=== PATIENT | male | born 1995 | race Caucasian/White ===

== ENCOUNTER 2016-10-01 12:11 | Emergency (ER) | payer BC ==
[~2016-10-01] VITALS: Ht 193 cm; Wt 120.0 kg
[~2016-10-01 12:11] MED LIST: NEXI20CA PO; NORC7.5T PO; PROM25TA5 PO; ZOFR4TAB3 SL
[2016-10-01 12:13] VITALS: BP 140/73; PULSE 98; RESP 14; TEMP 98.1; O2SAT 99
[2016-10-01] MEDS ORDERED: RESP: ALBUTEROL 2.5 MG/3 ML NEB (SCH) INH ONE (12:45)
[2016-10-01] MEDS ORDERED: IBUPROFEN 800 MG TAB PO ONE (12:45)
--- NOTE | 2016-10-01 12:56 | PD ---
HPI Chief Complaint: Cold / Flu Symptoms Time Seen by Provider: 12:39 Travel History International Travel<30 days: No Contact w/Intl Traveler<30days: No Traveled to known affect area: No History of Present Illness HPI 21-year-old male presents to the emergency Department with complaint of nasal congestion, sinus pressure, ear pressure, sore throat, cough, chest congestion, chest tightness, shortness of breath, and body aches that onset on Friday. Reports subjective fever with chills. Said his symptoms started out as a sore throat and moved into his chest and then worsened today with onset of all other symptoms. He does have history of asthma. He denies wheezing. He has not used his inhaler to try to alleviate symptoms. Denies abdominal pain, nausea, vomiting. Has tried ibuprofen and Robitussin with some relief of symptoms. He also started an old prescription of a Z-Matthew 2 days ago with no improvement in symptoms. Has not received flu vaccine. No one else sick with similar symptoms. Allergies to penicillin. History of asthma. No other modifying factors or associated signs and symptoms. PFSH Past Medical History Asthma: No Autoimmune Disease: No Blood Disorders: No Anxiety: Yes Heart Rhythm Problems: No Cardiovascular Problems: No Chest Pain: No Cystic Fibrosis: No Diminished Hearing: No GERD: Yes (Gastritis) Headaches: No Hypertension: No Musculoskeletal: No Neurologic: No Psychiatric: Yes Respiratory: No Immunizations Current: Yes Seizures: No Sickle Cell Disease: No Sleep Apnea: No Past Surgical History Other Surgery: No Social History Alcohol Use: No Tobacco Use: No (Quit about 1 year ago) Substance Use: No Allergies-Medications (Allergen,Severity, Reaction): Coded Allergies: Penicillin (Verified Allergy, Mild, hives, 02/28/15) Reported Meds & Prescriptions Reported Meds & Active Scripts Active Nasonex Nasal [place] (Mometasone Furoate) 50 Mcg/Act Naspr 2 [place] EACH NARE DAILY PRN Tessalon Perles (Benzonatate) 100 Mg Cap 100 Mg PO TID PRN Deltasone (Prednisone) 20 Mg Tab 40 Mg PO DAILY 5 Days Proair Hfa 8.5 GM Inh (Albuterol Sulfate) 90 Mcg/Act Aer 2 Puff INH Q4-6H PRN 108 mcg/actuation Zofran ODT (Ondansetron HCl) 4 Mg Tab 4-8 Mg SL Q6HR PRN FOR NAUSEA/VOMITING [place] 7.5-325 mg (Hydrocodone-Acetaminophen 7.5-325 mg) 7.5 Mg/325 Mg Tab 1 Tab PO Q4HR PRN Reported Nexium (Esomeprazole Magnesium) Esomeprazole Magnesium 20 mg Cap 20 Mg PO DAILY Phenergan 25 mg (Promethazine HCl) 25 Mg Tab 12.5 Mg PO Review of Systems Except as stated in HPI: all other systems reviewed are Neg Physical Exam Narrative GENERAL: Well-nourished, well-developed patient, in no acute distress; afebrile , nontoxic-appearing SKIN: Warm and dry. No rash. HEAD: Atraumatic. Normocephalic. EYES: Pupils equal and round at 3 mm with brisk reaction. No scleral icterus. No injection or drainage. PERRLA. ENT: Mucosa pink and moist. Oropharynx with erythema; without edema or exudates. No uvular edema. No uvular, palatal, or tonsillar deviation. Airway patent. EARS: Bilateral pinnae and external canals appear within normal limits. Bilateral tympanic membranes without erythema, dullness or perforation. NECK: Trachea midline. No lymphadenopathy. CARDIOVASCULAR: Regular rate and rhythm. No murmur appreciated. RESPIRATORY: No accessory muscle use. Clear to auscultation. Breath sounds equal bilaterally. GASTROINTESTINAL: Abdomen soft, non-tender, nondistended. Hepatic and splenic margins not palpable. Bowel sounds are active 4 quadrants. MUSCULOSKELETAL: No obvious deformities. No clubbing. No cyanosis. No edema. NEUROLOGICAL: Awake and alert. Oriented 3. No obvious cranial nerve deficits. Motor grossly within normal limits. Normal speech. Moves all extremities. 5/5 strength to all extremities. PSYCHIATRIC: Appropriate mood and affect; insight and judgment normal. Data Data Last Documented VS Vital Signs Date Time Temp Pulse Resp B/P Pulse Ox O2 Delivery O2 Flow Rate FiO2 10/01/16 13:57 17 10/01/16 12:13 98.1 98 140/73 99 Orders Influenzae A/B Antigen (10/01/16 12:30) Group A Rapid Strep Screen (10/01/16 12:30) Ibuprofen (Motrin) (10/01/16 12:45) Chest, Single Ap (10/01/16 12:38) Albuterol Neb (Albuterol Neb) (10/01/16 12:45) Strep Culture (Group A) (10/01/16 12:30) [facility] Medical Decision Making Medical Screen Exam Complete: Yes Emergency Medical Condition: Yes Medical Record Reviewed: Yes Differential Diagnosis Influenza, bronchitis, pneumonia, viral illness, sinusitis Narrative Course 21-year-old male with cold/flu symptoms. Patient has history of asthma and is complaining of chest tightness and shortness of breath. His lungs are clear and equal throughout. The patient is in no acute distress without retractions or tachypnea. His main complaint is cough and sore throat. Albuterol nebulizer , chest x-ray, influenza, rapid strep ordered. 1334: Influenza and rapid strep negative. Patient reports improvement in symptoms after breathing treatment. He denies chest tightness or shortness of breath. Feels like he can cough up more mucus and it has loosened up. Lungs are clear and equal throughout. 1433: Chest x-ray with no acute findings. Pro-air inhaler, Deltasone, Tessalon Perles, Nasonex nasal spray prescribed for home. Patient verbalizes understanding and agreement with treatment plan. Patient is medically cleared and stable for discharge. Discussed reasons to return to the emergency department. Instructed patient to follow up with primary care provider. Patient agrees with treatment plan. The patients vital signs are stable and the patient is stable for outpatient follow-up and treatment. Patient discharged home, stable and in no acute distress. Diagnosis Primary Impression: Acute bronchitis Qualified Code: J20.9 - Acute bronchitis, unspecified organism Referrals: Primary Care Physician Patient Instructions: General Instructions Departure Forms: Tests/Procedures, Work Release Enter return to work date: Oct 03, 2016 Additional Instructions: Use Albuterol inhaler as prescribed Take oral steroids as prescribed and complete full course Use Tessalon Perles as prescribed to decrease coughing spasms [id number] decongestants or antihistamines as directed and as needed for symptom management Your cough can last 4-6 weeks Drink plenty of fluids to prevent dehydration Use hot air humidifier to decrease cough exacerbation Turn off ceiling fans and sleep with head of bed elevated Avoid triggers such as second hand smoke, dust, known allergens Follow-up with your primary care provider Return to the emergency department immediately with worsening of symptoms Med/Other Pt SpecificInfo: Prescription(s) given Scripts Mometasone Nasal [place] (Nasonex Nasal [place])50 Mcg/Act Naspr2 [place] EACH NARE DAILY PRN (NASAL CONGESTION) #1 BOTTLE Ref 0 Prov:Jyotsna NielsenP 10/01/16 Benzonatate (Tessalon Perles)100 Mg [id number] Mg PO TID PRN (COUGH) #20 CAP Ref 0 Prov:Jyotsna NielsenP 10/01/16 Prednisone (Deltasone)20 Mg Tab40 Mg PO DAILY 5 Days Ref 0 Prov:Jyotsna Nielsen [employer] 10/01/16 Albuterol 8.5 GM Inh (Proair Hfa 8.5 GM Inh)90 Mcg/Act Aer2 Puff INH Q4-6H PRN ( SOB/WHEEZING) #1 INHALER Ref 0 108 mcg/actuation Prov:Jyotsna NielsenP 10/01/16 Disposition: 01 DISCHARGE HOME Condition: Stable Jyotsna Nielsen Oct 01, 2016 12:56
[2016-10-01] MEDS ORDERED: BENZ100 PO (13:39)
[2016-10-01] MEDS ORDERED: MOME17I EACH NARE (13:39)
[2016-10-01] MEDS ORDERED: PRED-503 PO (13:39)
[2016-10-01] MEDS ORDERED: ALBUAER3 INH (13:39)
[2016-10-01 13:57] VITALS: RESP 17
--- NOTE | 2016-10-01 14:18 | RADRPT ---
EXAM DATE/TIME: 10/01/2016 13:02 [place] COMPARISON: CHEST SINGLE AP, December 15, 2013, 12:52. INDICATIONS : Cough, congestion, fever. MEDICAL HISTORY : Asthma. Smoker. Pectus excavatum SURGICAL HISTORY : None. ENCOUNTER: Initial ACUITY: 3 days PAIN SCORE: 10/10 LOCATION: Left chest FINDINGS: A single view of the chest demonstrates the lungs to be symmetrically aerated without evidence of mas s, infiltrate or effusion. The cardiomediastinal contours are unremarkable. Osseous structures are intact. CONCLUSION: 1. No acute cardiopulmonary disease. Gamaliel Vann MD on October 01, 2016 at 14:16 Board Certified Radiologist. This report was verified electronically.
== END 2016-10-01 14:41 | disposition home or self-care (01) ==
LOC: NETRI 12:11
DX: J20.9 Acute bronchitis, unspecified (principal); Z87.891 Personal history of nicotine dependence
CPT/HCPCS: 71010; 87081; 87804; 87880; 94664; 99283; J7613

== ENCOUNTER 2017-02-27 12:21 | Emergency (ER) | payer BC ==
[~2017-02-27] VITALS: Ht 193 cm; Wt 120.0 kg
[~2017-02-27 12:21] MED LIST changes: +ALBUAER3 INH; +BENZ100 PO; +MOME17I EACH NARE; +PRED-503 PO
[2017-02-27 12:23] VITALS: BP 138/80; PULSE 102; RESP 20; TEMP 98.1; O2SAT 99
--- NOTE | 2017-02-27 12:38 | PD ---
Physical Exam Time Seen by Provider: 12:35 Narrative 21yo M c/o bug bite to R forehead since last weekend. Seen at urgent care yesterday and given doxycycline and mupirocic cream; says he cant take doxycycline due to stomach problems. +lymphadenopathy to R neck. Denies vomiting. Subjective fever, chills. Patient seen in triage. VS reviewed. Awaiting bed placement. Data Data Last Documented VS Vital Signs Date Time Temp Pulse Resp B/P (MAP) Pulse Ox O2 Delivery O2 Flow Rate FiO2 02/27/17 12:23 98.1 102 20 138/80 (99) 99 Room Air MDM Supervised Visit with ESTRADA: Jyotsna Wei Feb 27, 2017 12:38
--- NOTE | 2017-02-27 13:24 | PD ---
HPI Chief Complaint: Skin Problem Time Seen by Provider: 13:23 Travel History International Travel<30 days: No Contact w/Intl Traveler<30days: No Traveled to known affect area: No History of Present Illness HPI 21-year-old male presents the emergency department with a lesion to the right temporal/parietal scalp which he felt was either an ingrown hair an insect bite. Patient states it started approximate 4 days ago and has progressively worsened. He now has pain and swelling from the lesion extending down into the right posterior ear and neck on the right side. He denies specific fever but has had chills, as well as sweats last night. Patient was seen in a local clinic given doxycycline and Bactroban ointment. Patient states she did not start the doxycycline as he has had severe stomach issues with that medication in the past. He states he can take Bactrim but it makes him nauseous. Currently his pain is about an 8 out of 10. He has no difficulty swallowing or breathing. He has no other symptoms. He is allergic to penicillin G. PFS Past Medical History Asthma: No Autoimmune Disease: No Blood Disorders: No Anxiety: Yes Heart Rhythm Problems: No Cardiovascular Problems: No Chest Pain: No Cystic Fibrosis: No Diminished Hearing: No GERD: Yes (Gastritis) Headaches: No Hypertension: No Musculoskeletal: No Neurologic: No Psychiatric: Yes Respiratory: No Immunizations Current: Yes Seizures: No Sickle Cell Disease: No Sleep Apnea: No Past Surgical History Other Surgery: No Social History Alcohol Use: No Tobacco Use: No (Quit about 1 year ago) Substance Use: No Allergies-Medications (Allergen,Severity, Reaction): Coded Allergies: penicillin G (Unverified Allergy, Mild, hives, 02/11/17) Reported Meds & Prescriptions Reported Meds & Active Scripts Active Levaquin (Levofloxacin) 500 Mg Tablet 500 Mg PO DAILY 10 Days Zofran (Ondansetron HCl) 4 Mg Tab 4 Mg PO Q6HR PRN Nasonex Nasal [place] (Mometasone Furoate) 50 Mcg/Act Naspr 2 [place] EACH NARE DAILY PRN Tessalon Perles (Benzonatate) 100 Mg Cap 100 Mg PO TID PRN Deltasone (Prednisone) 20 Mg Tab 40 Mg PO DAILY 5 Days Proair Hfa 8.5 GM Inh (Albuterol Sulfate) 90 Mcg/Act Aer 2 Puff INH Q4-6H PRN 108 mcg/actuation Zofran ODT (Ondansetron HCl) 4 Mg Tab 4-8 Mg SL Q6HR PRN FOR NAUSEA/VOMITING [place] 7.5-325 mg (Hydrocodone-Acetaminophen 7.5-325 mg) 7.5 Mg/325 Mg Tab 1 Tab PO Q4HR PRN Reported Nexium (Esomeprazole Magnesium) Esomeprazole Magnesium 20 mg Cap 20 Mg PO DAILY Phenergan 25 mg (Promethazine HCl) 25 Mg Tab 12.5 Mg PO Review of Systems Except as stated in HPI: all other systems reviewed are Neg General / Constitutional: Positive: Chills, No: Fever Eyes: No: Visual changes HENT: No: Headaches Cardiovascular: No: Chest Pain or Discomfort Respiratory: No: Shortness of Breath Gastrointestinal: No: Abdominal Pain Genitourinary: No: Dysuria Musculoskeletal: No: Pain Skin: Positive Lesions, No Rash Neurologic: No: Weakness Psychiatric: No: Depression Endocrine: No: Polydipsia Hematologic/Lymphatic: No: Easy Bruising Physical Exam Narrative GENERAL: Patient appears in mild distress. SKIN: Warm and dry. Normal color. Normal turgor. Patient has a scab-like lesion to the right lateral posterior latter day on the edge of the parietal region of the scalp with localized induration, mild erythema and swelling but no obvious abscess. Patient has no significant increased warmth or streaking. HEAD: Atraumatic. Normocephalic. EYES: Pupils equal and round. No scleral icterus. No injection or drainage. ENT: No nasal bleeding or discharge. Mucous membranes pink and moist. Pharynx is clear. Airway is patent. The pupils are clear bilaterally. NECK: Trachea midline. Supple. Patient has significant tenderness with palpation along the right anterior lymphatic chain. CARDIOVASCULAR: Regular rate and rhythm. RESPIRATORY: No accessory muscle use. Clear to auscultation. Breath sounds equal bilaterally. MUSCULOSKELETAL: Extremities without clubbing, cyanosis, or edema. No obvious deformities. NEUROLOGICAL: Awake and alert. No obvious cranial nerve deficits. Motor grossly within normal limits. Five out of 5 muscle strength in the arms and legs. Normal speech. PSYCHIATRIC: Appropriate mood and affect; insight and judgment normal. Data Data Last Documented VS Vital Signs Date Time Temp Pulse Resp B/P (MAP) Pulse Ox O2 Delivery O2 Flow Rate FiO2 02/27/17 13:54 02/27/17 12:23 98.1 102 20 99 Room Air [facility] Medical Decision Making Medical Screen Exam Complete: Yes Emergency Medical Condition: Yes Differential Diagnosis Insect bite. Cellulitis. Lymphangitis. Narrative Course Patient will be treated with Levaquin 500 mg daily 10 days. Patient is given Zofran 4 mg every 6 hours when necessary nausea so he can take the Bactrim. Patient to continue Bactroban ointment as previous. Patient should take Tylenol and ibuprofen as needed for pain. Recommend warm compresses to the affected area frequently. Patient should follow up with symptoms are not improving in the next 24-48 hours as discussed. Diagnosis Primary Impression: Cellulitis of scalp Patient Instructions: Cellulitis (ED), General Instructions, MRSA (Methicillin- Resistant Staphylococcus Aureus) (ED) Additional Instructions: Patient will be treated with Levaquin 500 mg daily 10 days. Patient is given Zofran 4 mg every 6 hours when necessary nausea so he can take the Bactrim. Patient to continue Bactroban ointment as previous. Patient should take Tylenol and ibuprofen as needed for pain. Recommend warm compresses to the affected area frequently. Patient should follow up with symptoms are not improving in the next 24-48 hours as discussed. Scripts Levofloxacin (Levaquin) 500 Mg Tablet 500 MG PO DAILY for Infection for 10 Days, TAB 0 Refills Prov: Abhijit Cortes MD 02/27/17 Ondansetron (Zofran) 4 Mg Tab 4 MG PO Q6HR Y for NAUSEA OR VOMITING, #20 TAB 0 Refills Prov: Abhijit Cortes MD 02/27/17 Disposition: 01 DISCHARGE HOME Condition: Stable Yusuf Velazco Feb 27, 2017 13:24
[2017-02-27] MEDS ORDERED: ZOFR4TAB PO (13:38)
[2017-02-27] MEDS ORDERED: BACT800T5 PO (13:38)
[2017-02-27] MEDS ORDERED: LEVA500T20 PO (14:13)
== END 2017-02-27 14:18 | disposition home or self-care (01) ==
LOC: NEPK 12:21
DX: L03.811 Cellulitis of head [any part, except face] (principal); F41.9 Anxiety disorder, unspecified; K21.9 Gastro-esophageal reflux disease without esophagitis; K29.70 Gastritis, unspecified, without bleeding; Z79.899 Other long term (current) drug therapy
CPT/HCPCS: 99284